=== PATIENT | male | born 2005 | race Caucasian/White ===

== ENCOUNTER 2025-10-25 01:12 | Emergency (ER) | payer OTHER ==
[~2025-10-25] VITALS: Ht 180.3 cm; Wt 83.9 kg
[2025-10-25 02:27] VITALS: BP 122/66; TEMP 98.4; O2SAT 98
== END 2025-10-25 02:28 | disposition home or self-care (01) ==
LOC: ER 01:12
DX: F41.0 Panic disorder [episodic paroxysmal anxiety] (principal); Z60.2 Problems related to living alone